=== PATIENT | male | born 1965 | race Caucasian/White ===

== ENCOUNTER 2020-06-12 04:44 | Observation (INO) | payer OTHER ==
[~2020-06-12] VITALS: Ht 180.3 cm; Wt 59.4 kg
[2020-06-12] MEDS ORDERED: losartan (04:53)
--- NOTE | 2020-06-12 04:54 | NUR ---
c/o chest pain that started today. right sided, worse with movement. remsa gave nitro and pt reports improvement. +etoh. pt attached to all monitors.
[2020-06-12] MEDS ORDERED: KETOROLAC 30 MG/1 ML ONE (04:59)
[2020-06-12] MEDS ORDERED: SODIUM CHLORIDE FLUSH 10ML SYR IVF ONE (05:00)
[2020-06-12] MEDS ORDERED: ONDANSETRON 2MG/ML, 2ML IVPush ONE (05:00)
[2020-06-12] MEDS ORDERED: KETOROLAC 30 MG/1 ML IVPush ONE (05:00)
[2020-06-12 05:23] LABS: BASOPHILS % (AUTO) 1 % (0-1); EOSINOPHILS % (AUTO) 3 % (1-7); LYMPHOCYTES % (AUTO) 24 % (22-44); MEAN CORPUSCULAR HEMOGLOBIN 36.8 pg (27.5-34.5); MEAN CORPUSCULAR HGB CONC 34.4 g/dL (33.2-36.2); MEAN PLATELET VOLUME 7.7 fL (7.4-10.4); MONOCYTES % (AUTO) 6 % (2-9); NEUTROPHILS % (AUTO) 68 % (42-75); PLATELET COUNT 314 x10^3/uL (130-400); RED CELL DISTRIBUTION WIDTH 12.7 % (9.4-14.8)
[2020-06-12 05:28] LABS: MD SCAN
[2020-06-12 05:38] LABS: ANION GAP 5 mmol/L (5-15); CHLORIDE 106 mmol/L (98-107)
[2020-06-12 05:46] LABS: CREATININE 0.64 mg/dL (0.7-1.3)
[2020-06-12 05:48] LABS: TROPONIN I 0.202 ng/mL (0.000-0.045)
[2020-06-12] MEDS ORDERED: NITROGLYCERIN SINGLE TAB 0.4 MG SL PRN (06:00)
[2020-06-12] MEDS ORDERED: NITROGLYCERIN SINGLE TAB 0.4 MG SL ONE (06:29)
[2020-06-12] MEDS ORDERED: OMNIPAQUE 350 MG/ML, 75ML BOTTLE ONE (06:30)
--- NOTE | 2020-06-12 06:45 | NUR ---
pt reports relief of chest pain after nitro. bp stable.
--- NOTE | 2020-06-12 06:55 | NUR ---
BS REPORT RECEIVED FROM MARJORIE SCHNEIDER
--- NOTE | 2020-06-12 07:23 | NUR ---
PT REPORTS NO CHEST PAIN AT THIS TIME. CTA RESULTS BACK, LAW AWARE. PT A&O, RESPS EVEN AND UNLABORED, ALL MONITORS ATTACHED, NADN. PT SITTING COMFORTABLY IN BED, CALL LIGHT IN REACH. AWAITING ADMIT ORDERS.
--- NOTE | 2020-06-12 07:43 | NUR ---
REPORT GIVEN TO RECEIVING JENNIE GR
[2020-06-12] MEDS ORDERED: MELATONIN 5 MG TABLET PO PRN (08:00)
[2020-06-12] MEDS ORDERED: morphine SULFATE 10 MG/ML, 1ML IVPush PRN (08:00)
[2020-06-12] MEDS ORDERED: ENOXAPARIN 40 MG/0.4 ML SQ SCH (08:00)
[2020-06-12] MEDS ORDERED: DOCUSATE 100 MG CAPSULE PO PRN (08:00)
[2020-06-12] MEDS ORDERED: ONDANSETRON 2MG/ML, 2ML IVPush PRN (08:00)
[2020-06-12] MEDS ORDERED: hydrALAzine 20 MG/ML, 1ML IVPush PRN (08:00)
[2020-06-12] MEDS ORDERED: NITROGLYCERIN 0.4 MG BOTTLE (25 TABS) SL PRN (08:00)
[2020-06-12 08:20] VITALS: BP 154/94
[2020-06-12 08:55] LABS: TROPONIN I 0.239 ng/mL (0.000-0.045)
[2020-06-12] MEDS: ACETAMINOPHEN 325 MG TABLET PO PRN ×2 (09:23→13:52)
[2020-06-12] MEDS ORDERED: HEPARIN 5,000 UNITS/ML, 1ML IV ONE (09:34)
[2020-06-12] MEDS ORDERED: HEPARIN 25,000 UNITS/250ML PMX 250 ML IV PRN (10:00)
[2020-06-12] MEDS ORDERED: HEPARIN 5,000 UNITS/ML, 1ML IV PRN (10:00)
[2020-06-12] MEDS ORDERED: LOSA100T14 PO (11:47)
[2020-06-12] MEDS ORDERED: CARV6.252 PO (11:48)
[2020-06-12] MEDS: LOSARTAN 100 MG TAB PO SCH (12:54)
[2020-06-12 12:59] VITALS: BP 180/115
[2020-06-12 13:04] VITALS: BP 159/93
[2020-06-12 13:33] VITALS: BP 155/89
[2020-06-12 14:15] LABS: TROPONIN I 0.101 ng/mL (0.000-0.045)
[2020-06-12 15:00] VITALS: BP 169/105
[2020-06-12] MEDS: CARVEDILOL 6.25 MG TABLET PO SCH (17:17)
[2020-06-12] MEDS: PANTOPRAZOLE 40MG TABLET PO SCH (18:12)
[2020-06-12] MEDS ORDERED: MAALOX/HYOSCYAMINE/LIDOCAINE 45 ML BTL PO ONE (18:30)
[2020-06-12 20:19] VITALS: BP 153/87
[2020-06-13 00:38] VITALS: BP 135/90
[2020-06-13 05:22] LABS: ALANINE AMINOTRANSFERASE 23 U/L (12-78); ALBUMIN 3.6 g/dL (3.4-5.0); ANION GAP 4 mmol/L (5-15); BASOPHILS % (AUTO) 1 % (0-1); CALCIUM 9.3 mg/dL (8.5-10.1); CHLORIDE 104 mmol/L (98-107); CREATININE 0.61 mg/dL (0.7-1.3); EOSINOPHILS % (AUTO) 4 % (1-7); LYMPHOCYTES % (AUTO) 25 % (22-44); MEAN CORPUSCULAR HEMOGLOBIN 36.6 pg (27.5-34.5); MEAN CORPUSCULAR HGB CONC 34.6 g/dL (33.2-36.2); MEAN PLATELET VOLUME 8.3 fL (7.4-10.4); MONOCYTES % (AUTO) 11 % (2-9); NEUTROPHILS % (AUTO) 59 % (42-75); PLATELET COUNT 298 x10^3/uL (130-400); RED CELL DISTRIBUTION WIDTH 13.3 % (9.4-14.8)
[2020-06-13 05:24] LABS: ALKALINE PHOSPHATASE 70 U/L (45-117); BILIRUBIN,TOTAL 0.4 mg/dL (0.2-1.0); TOTAL PROTEIN 6.7 g/dL (6.4-8.2)
[2020-06-13 05:30] LABS: MD NO
[2020-06-13] MEDS: PANTOPRAZOLE 40MG TABLET PO SCH (05:39)
[2020-06-13 06:40] VITALS: BP 147/87
[2020-06-13] MEDS ORDERED: PANTOPRAZOLE 40MG TABLET PO SCH (07:30)
[2020-06-13] MEDS: CARVEDILOL 6.25 MG TABLET PO SCH (08:18)
[2020-06-13] MEDS: LOSARTAN 100 MG TAB PO SCH (08:18)
[2020-06-13] MEDS: ACETAMINOPHEN 325 MG TABLET PO PRN (09:34)
[2020-06-13] MEDS ORDERED: LORazepam 1MG TABLET PO ONE (11:30)
[2020-06-13] MEDS ORDERED: REGADENOSON 0.4 MG/5 ML SYRINGE ONE (12:59)
[2020-06-13 14:47] VITALS: BP 135/78
[2020-06-13] MEDS ORDERED: NITR0.4T28 SL (15:29)
[2020-06-13] MEDS ORDERED: PANT40TA6 PO (15:29)
[2020-06-13] MEDS ORDERED: ATOR40TA78 PO (15:31)
[2020-06-13 16:21] LABS: LDL/HDL RATIO 2.5 (0.5-3.0)
== END 2020-06-13 16:50 | disposition home or self-care (01) ==
LOC: ED 06:50 → EDIP 07:17 → INTOOBSV 07:17 → SUATTDRO 07:20 → 5SO 08:14 → DCLOUNGE 06-13 16:39 → UNDODISIN 06-13 16:50
PROVIDERS: ADMIT Hospitalist; ATTEND Hospitalist
DX: R07.89 Other chest pain (principal); R79.89 Other specified abnormal findings of blood chemistry; R94.31 Abnormal electrocardiogram [ECG] [EKG]; I10 Essential (primary) hypertension; E78.5 Hyperlipidemia, unspecified; F10.229 Alcohol dependence with intoxication, unspecified; F17.200 Nicotine dependence, unspecified, uncomplicated; Z79.899 Other long term (current) drug therapy
CPT/HCPCS: 36415; 71045; 71275; 78452; 80048; 80053; 80061; 80320; 82040; 83036; 83735; 83880; 84100; 84443; 84484; 85025; 85520; 93005; 93017; 93306; 96365; 96366; 96375; 96376; 99285; A9502; G0378; J0360; J1644; J1885; J2270; J2785; Q9967; G0480

== ENCOUNTER 2020-06-29 09:51 | Emergency (ER) | payer OTHER ==
[~2020-06-29] VITALS: Ht 180.3 cm; Wt 59.7 kg
[~2020-06-29 09:51] MED LIST: ATOR40TA78 PO; CARV6.252 PO; LOSA100T14 PO; NITR0.4T28 SL; PANT40TA6 PO; losartan
[2020-06-29 10:04] VITALS: BP 158/101
[2020-06-29] MEDS ORDERED: ONDANSETRON ODT 4 MG ONE (10:51)
[2020-06-29] MEDS ORDERED: DIAZEPAM 5 MG/ML, 2ML ONE (10:51)
[2020-06-29] MEDS ORDERED: KETOROLAC 30 MG/1 ML ONE (10:52)
[2020-06-29] MEDS ORDERED: MORPHINE SULFATE 4 MG/ML, 1ML ONE (10:52)
[2020-06-29] MEDS ORDERED: SODIUM CHLORIDE FLUSH 10ML SYR IVF ONE (11:00)
[2020-06-29] MEDS ORDERED: ONDANSETRON ODT 4 MG PO ONE (11:00)
[2020-06-29] MEDS ORDERED: KETOROLAC 30 MG/1 ML IVPush ONE (11:00)
[2020-06-29] MEDS ORDERED: DIAZEPAM 5 MG/ML, 2ML IVPush ONE (11:00)
[2020-06-29] MEDS ORDERED: MORPHINE SULFATE 4 MG/ML, 1ML IVPush PRN (11:00)
--- NOTE | 2020-06-29 11:29 | NUR ---
PT REPORTS HE FEELS MUCH BETTER
== END 2020-06-29 12:06 | disposition home or self-care (01) ==
LOC: ED 10:46
DX: M54.41 Lumbago with sciatica, right side (principal); I10 Essential (primary) hypertension
CPT/HCPCS: 96374; 96375; 99284; J1885; J2270; J3360; Q0162